=== PATIENT | male | born 1955 | race Caucasian/White ===

== ENCOUNTER 2017-09-11 19:45 | Emergency (ER) | payer MEDICAID ==
--- NOTE | 2017-09-11 19:55 | ED Physician Chart ---
ED Chief Complaint/HPI - Patient Information Date Seen:: 09/11/17 Time Seen:: 19:45 Chief Complaint:: left leg pain History of Present Illness:: Patient states he fell one and a half months ago and has pain of his left femur and is unable to walk. Historian:: Patient, EMS Review:: Nurse's Note Reviewed ED Review of Systems - Review of Systems General/Constitutional: No fever, No chills Skin: No skin lesions Head: No headache Eyes: No loss of vision ENT: No earache Neck: No neck pain, No swelling Cardio Vascular: No chest pain Pulmonary: No SOB GI: No nausea, No vomiting, No diarrhea G/U: No dysuria, No hematuria Musculoskeletal: Bone or joint pain Endocrine: No polyuria, No polydipsia Psychiatric: No prior psych history Hematopoietic: No bruising Allergic/Immuno: No urticaria Neurological: No focal symptoms ED Past Medical History - Past Medical History Past Medical History: No significant medical hx Family History: None Social History: Non Smoker, Alcohol Surgical History: None Family Medical History - Family Member Mother History Unknown: Yes ED Physical Exam - Physical Examination Other Gen/Cons comments:: Disheveled; chronically ill-appearing Head: Atraumatic Eyes: Lids, conjuctiva normal Other Skin comments:: Mild erythema lower legs Other ENMT comments:: Edentulous Neck: No nuchal rigidity Respiratory: Clear to Auscultation Other Cardio Vascular comments:: Heart sounds and audible; pulse regular GI: No tenderness/rebounding/guarding Other Extremities comments:: Mild erythema both lower legs Neuro/Psych: No focal deficits ED Labs/Radiology/EKG Results - Radiology Results Results: X-ray of pelvis showed severe degenerative changes of the left femoral head; jaime in the left femur noted; no acute fracture noted ED Septic Shock - . Is Septic Shock (SBP<90, OR Lactate>4 mmol\L) present?: No ED Reassessment (Disposition) - Reassessment Reassessment Condition:: Unchanged - Diagnosis Diagnosis:: Douglas pain left hip and left femur secondary to arthritis and previous surgery - Aftercare/Follow up Instructions Aftercare/Follow-Up Instructions:: Refer to Discharge Instructions - Patient Disposition Discharge/Transfer:: Home Condition at Disposition:: Stable, Unchanged
[2017-09-11 21:07] LABS: % EOSINOPHILS 9.1 % (0.0-5.0); % LYMPHOCYTES 36.6 % (20.0-50.0); % MONOCYTES 9.3 % (2.0-10.0); BASOPHILE ABSOLUTE 0.1 Th/cumm (0-0.2); EOSINOPHILE ABSOLUTE 0.4 Th/cmm (0.1-0.4); HEMOGLOBIN 12.8 gm/dL (12-16); LYMPHOCYTE ABSOLUTE 1.5 Th/cmm (1.5-3.0); MEAN CELL VOLUME 92.3 fl (80-99); MEAN CORPUSCULAR HEMOGLOBIN 31.9 pg (26.0-30.0); MEAN CORPUSCULAR HGB CONC 34.6 pg (28.0-36.0); MEAN PLATELET VOLUME 6.2 fl; MONOCYTE ABSOLUTE 0.4 Th/cmm (0.3-1.0); NEUTROPHILE ABSOLUTE 1.7 Th/cmm (1.8-8.0); PLATELET COUNT 266 Th/cmm (150-400); RED BLOOD COUNT 4.01 Mil/cmm (4.30-5.70); RED CELL DISTRIBUTION WIDTH 16.9 % (11.5-20.0); WHITE BLOOD COUNT 4.1 Th/cmm (4.8-10.8)
[2017-09-11 21:22] LABS: ANION GAP 15.1 (7.0-16.0); BUN - UREA NITROGEN 9 mg/dL (7-25); CALCIUM SERUM 8.8 mg/dL (8.6-10.3); CARBON DIOXIDE 24.4 mEq/L (21.0-31.0); CHLORIDE 106 mEq/L (98-107); CREATININE - SERUM 0.5 mg/dL (0.7-1.3); GFR AFRICAN-AMERICAN > 60.0 ml/min (>90); GFR NON AFRICAN-AMERICAN > 60.0 ml/min; GLUCOSE 102 mg/dL (70-105); POTASSIUM SERUM 3.5 mEq/L (3.5-5.1); SODIUM SERUM 142 mEq/L (136-145)
--- NOTE | 2017-09-12 08:54 | Diagnostic Imaging Report ---
Exam: Left femur HISTORY:, Please of left femur were reviewed. The study demonstrates rodding of the left femur Degenerative changes with erosion and the superior subluxation of the femoral head superiorly is noted. This most likely represent degenerative or old findings. There is no evidence of acute fracture or dislocation. Degenerative osteopenia is noted. 3 metallic screws are transfixing distal left femur. Incidentally noted lucency extending from the proximal left tibia to the mid tibia, clinical correlation and x-rays of left tibia recommended. IMPRESSION: Diffuse osteopenia degenerative changes of the left femur with erosion of left femoral head and the most likely old dislocation of the left hip joint superiorly. Ill-defined lucency through the proximal portion left tibia medially, question of nondisplaced fracture cannot be excluded follow-up examination of the left tibia recommended.
--- NOTE | 2017-09-12 08:56 | Diagnostic Imaging Report ---
Exam: Pelvis x-ray HISTORY: Trauma. Findings: Single frontal portable summation of the pelvis at 2048 hours reviewed, no prior studies available for comparison. The study demonstrates degenerative osteopenia throughout. There is evidence for right total hip prosthesis in satisfactory position and orientation. The head of right femoral prosthesis is within the acetabular portion of prosthesis The left hip joint demonstrates a superior dislocation of the left femur with erosion and disintegration of the left femoral head. Rodding of the left femur appreciated. 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
== END 2017-09-12 06:48 | disposition home or self-care (01) ==
LOC: ER 19:45
DX: M19.272 Secondary osteoarthritis, left ankle and foot (principal); M25.552 Pain in left hip; M79.662 Pain in left lower leg
CPT/HCPCS: 36415-UA; 72170-TC; 80048-TC; 80320-TC; 85025-TC

== ENCOUNTER 2017-09-16 21:34 | Emergency (ER) | payer MEDICAID ==
--- NOTE | 2017-09-17 07:05 | ED Physician Chart ---
ED Chief Complaint/HPI - Patient Information Date Seen:: 09/17/17 Time Seen:: 00:30 Chief Complaint:: alcohol intoxication History of Present Illness:: 61 yo male was brought by BLS ambulance to ER due to alcohol intoxication. The patient was awake, alert. He denied pain. His respiration was even and non- labored. Patient yelled at times in the ER. There was no other medical complaints. Allergies:: Allergies Allergy/AdvReac Type Severity Reaction Status Date / Time No Known Allergies Allergy Verified 09/17/17 05:57 Vitals:: Vital Signs - 8 hr 09/17/17 09/17/17 00:00 04:00 Temp 98.2 F 98.1 F HR 95 92 RR 18 18 BP 145/90 139/86 O2 Sat % 98 97 ED Review of Systems - Review of Systems General/Constitutional: No fever, No chills Skin: No skin lesions Head: Headache Eyes: No loss of vision ENT: No earache Neck: No neck pain Cardio Vascular: No chest pain Pulmonary: No SOB GI: No nausea Musculoskeletal: Bone or joint pain ED Past Medical History - Past Medical History Past Medical History: Other (Left hip DJD) Social History: Non Smoker, Alcohol, No Drug Use Surgical History: other (Left femur ORIF) Family Medical History - Family Member Mother History Unknown: Yes ED Physical Exam - Physical Examination General/Constitutional: Awake, Alert Head: Atraumatic Eyes: PERRL Skin: No skin lesions Neck: No nuchal rigidity Respiratory: Clear to Auscultation Cardio Vascular: RRR, No murmur, gallop, rubs, NL S1 S2 GI: No tenderness/rebounding/guarding Extremities: normal strength in all extremities Neuro/Psych: No focal deficits ED Assessment - Assessment General Assessment: Alcohol intoxication Assessment/Comments:: Observation Patient slept for 5-6 hours in the ER and had breakfast D/c home F/u PCP for quit drinking alcohol ED Septic Shock - . Is Septic Shock (SBP<90, OR Lactate>4 mmol\L) present?: No - <6hrs of presentation: Vital Signs: Vital Signs - 8 hr 09/17/17 09/17/17 00:00 04:00 Temp 98.2 F 98.1 F HR 95 92 RR 18 18 BP 145/90 139/86 O2 Sat % 98 97 ED Reassessment (Disposition) - Reassessment Reassessment Condition:: Improved - Patient Disposition Discharge/Transfer:: Home ED Discharge Plan - Patient Disposition Admit/Discharge/Transfer: PT DISCHARGED HOME Condition at Disposition: Improved Instructions: Alcohol Intoxication, [id number]
== END 2017-09-17 08:30 | disposition home or self-care (01) ==
LOC: ER 21:34
DX: F10.129 Alcohol abuse with intoxication, unspecified (principal)
CPT/HCPCS: Z7502

== ENCOUNTER 2017-09-22 14:19 | Emergency (ER) | payer MEDICAID ==
--- NOTE | 2017-09-22 20:56 | ED Physician Chart ---
ED Chief Complaint/HPI - Patient Information Allergies:: Allergies Allergy/AdvReac Type Severity Reaction Status Date / Time No Known Allergies Allergy Verified 09/17/17 05:57 Vitals:: Vital Signs - 8 hr 09/22/17 14:55 Temp 97.6 F HR 93 RR 18 BP 157/89 O2 Sat % 96 Family Medical History - Family Member Mother History Unknown: Yes ED Septic Shock - . Is Septic Shock (SBP<90, OR Lactate>4 mmol\L) present?: No - <6hrs of presentation: Vital Signs: Vital Signs - 8 hr 09/22/17 14:55 Temp 97.6 F HR 93 RR 18 BP 157/89 O2 Sat % 96 ED Reassessment (Disposition) - Reassessment Reassessment:: pt in stable condition while in ER. says he feels better and wants to go. pt to be discharged. discharge diagnosis: alcohol use, intoxication, improved. Reassessment Condition:: Improved - Diagnosis Diagnosis:: alcohol use and intoxication, improved - Aftercare/Follow up Instructions Aftercare/Follow-Up Instructions:: Refer to Discharge Instructions - Patient Disposition Discharge/Transfer:: Home Time:: 20:55 Condition at Disposition:: Stable, Improved ED Discharge Plan - Patient Disposition Instructions: Chemical Dependency, Alcohol Intoxication, [id number]
== END 2017-09-22 22:10 | disposition home or self-care (01) ==
LOC: ER 14:19
DX: F10.129 Alcohol abuse with intoxication, unspecified (principal)
CPT/HCPCS: Z7502

== ENCOUNTER 2017-09-23 14:01 | Emergency (ER) | payer MEDICAID ==
[2017-09-23] MEDS ORDERED: Sodium Chloride 0.9% 1,000 ML IV ONE (14:51)
--- NOTE | 2017-09-23 14:57 | ED Physician Chart ---
ED Chief Complaint/HPI - Patient Information Date Seen:: 09/23/17 Time Seen:: 14:10 Chief Complaint:: ALOC History of Present Illness:: onset x 3 hours of AMS/ALOC due to ETOH Intoxication which resolved upon ER arrival; pt denies head/neck trauma, H/As, LOC, visual or gait changes, S/T, nevk pain, C/P, SOB, Abd. Pain, Cough, A/N/V/D/C, fever, chills, or urinary s/s Allergies:: Allergies Allergy/AdvReac Type Severity Reaction Status Date / Time No Known Allergies Allergy Verified 09/17/17 05:57 Vitals:: Vital Signs - 8 hr 09/23/17 14:08 Temp 96 F HR 101 RR 16 BP 137/91 O2 Sat % 99 Historian:: Patient, EMS Review:: Nurse's Note Reviewed ED Review of Systems - Review of Systems General/Constitutional: No fever, No chills, No weight loss, No weakness, No diaphoresis, No edema, No loss of appetite Skin: No skin lesions, No rash, No bruising Head: No headache, No light-headedness Eyes: No loss of vision, No pain, No diplopia ENT: No earache, No nasal drainage, No sore throat, No tinnitus Neck: No neck pain, No swelling, No thyromegaly, No stiffness, No mass noted Cardio Vascular: No chest pain, No palpitations, No PND, No orthopnea, No edema Pulmonary: No SOB, No cough, No sputum, No wheezing GI: No nausea, No vomiting, No diarrhea, No pain, No melena, No hematochezia, No constipation, No hematemesis G/U: No dysuria, No frequency, No hematuria, No nacturia Musculoskeletal: No bone or joint pain, No back pain, No muscle pain Endocrine: No polyuria, No polydipsia Psychiatric: No prior psych history, No depression, No anxiety, No suicidal ideation, No homicidal ideation, No auditory hallucination, No visual hallucination Hematopoietic: No bruising, No lymphadenopathy Allergic/Immuno: No urticaria, No angioedema Neurological: No syncope, No focal symptoms, No weakness, No paresthesia, No headache, No seizure, No dizziness, No confusion, No vertigo ED Past Medical History - Past Medical History Obtainable: Yes Past Medical History: Other (substance/ETOH abuse) Family History: HTN Social History: Smoker, Alcohol, Illicit Drug Use, Single, Homeless Surgical History: None Psychiatricy History: None Medication: Reviewed Family Medical History - Family Member Mother History Unknown: Yes ED Physical Exam - Physical Examination General/Constitutional: Awake, Well-developed, well-nourished, Alert, No distress, GCS 15, Non-toxic appearing, Ambulatory Head: Atraumatic Eyes: Lids, conjuctiva normal, PERRL, EOMI Skin: Nl inspection, No rash, No skin lesions, No ecchymosis, Well hydrated, No lymphadenopathy ENMT: External ears, nose nl, TM canals nl, Nasal exam nl, Lips, teeth, gums nl , Oropharynx nl, Tonsils nl Neck: Nontender, Full ROM w/o pain, No JVD, No nuchal rigidity, No bruit, No mass, No stridor Other Neck comments:: Supple; no meningeal signs; no cervical tenderness; no bruits Respiratory: Nl effort/Exclusion, Clear to Auscultation, No Wheeze/Rhonchi/Rales Cardio Vascular: RRR, No murmur, gallop, rubs, NL S1 S2, Carotid/Femoral/Distal pulses equal bilaterally GI: No tenderness/rebounding/guarding, No organomegaly, No hernia, Normal BS's, Nondistended, No mass/bruits, No McBurney tenderness Other GI comments:: no pulsatile masses : No CVA tenderness Extremities: No tenderness or effusion, Full ROM, normal strength in all extremities, No edema, Normal digits & nails Neuro/Psych: Alert/oriented, DTR's symmetric, Normal sensory exam, Normal motor strength, Judgement/insight normal, Mood normal, Normal gait, No focal deficits Misc: Normal back, No paraspinal tenderness ED Septic Shock - . Is Septic Shock (SBP<90, OR Lactate>4 mmol\L) present?: No - <6hrs of presentation: Vital Signs: Vital Signs - 8 hr 09/23/17 14:08 Temp 96 F HR 101 RR 16 BP 137/91 O2 Sat % 99
[2017-09-23 15:29] LABS: RED BLOOD COUNT 4.52 Mil/cmm (4.30-5.70); WHITE BLOOD COUNT 5.6 Th/cmm (4.8-10.8)
[2017-09-23 15:30] LABS: % EOSINOPHILS 3.2 % (0.0-5.0); % LYMPHOCYTES 22.4 % (20.0-50.0); % MONOCYTES 13.4 % (2.0-10.0); % NEUTROPHILS 60.9 % (40.0-80.0); HEMATOCRIT 42.4 % (41.0-60); MEAN CELL VOLUME 93.7 fl (80-99); MEAN CORPUSCULAR HGB CONC 33.1 pg (28.0-36.0); MEAN PLATELET VOLUME 6.3 fl; PLATELET COUNT 248 Th/cmm (150-400)
[2017-09-23 15:31] LABS: % BASOPHILS 0.1 % (0.0-2.0); EOSINOPHILE ABSOLUTE 0.2 Th/cmm (0.1-0.4); LYMPHOCYTE ABSOLUTE 1.3 Th/cmm (1.5-3.0); MONOCYTE ABSOLUTE 0.8 Th/cmm (0.3-1.0); NEUTROPHILE ABSOLUTE 3.3 Th/cmm (1.8-8.0)
[2017-09-23 15:40] LABS: INR 1.01 (0.5-1.4); PROTHROMBIN TIME (TEST) 10.5 SECONDS (9.5-11.5)
[2017-09-23] MEDS ORDERED: Multivitamin Inj 10 ML, Thiamine HCL 100 MG, Magnesium Sulfate 2 GM, Folic Acid 1 MG in... IV ONE (16:00)
[2017-09-23 16:15] LABS: AMYLASE SERUM 34 U/L (29-103); LIPASE 48 U/L (11-82)
[2017-09-23 16:16] LABS: ANION GAP 20.5 (7.0-16.0); BUN - UREA NITROGEN 8 mg/dL (7-25); CARBON DIOXIDE 20.7 mEq/L (21.0-31.0); CHLORIDE 107 mEq/L (98-107); GLUCOSE 96 mg/dL (70-105); POTASSIUM SERUM 3.2 mEq/L (3.5-5.1); SODIUM SERUM 145 mEq/L (136-145)
[2017-09-23 16:17] LABS: ALB/GLOB RATIO 1.3 (1.0-1.8); ALBUMIN 4.4 gm/dL (4.2-5.5); BILIRUBIN,TOTAL 0.3 mg/dL (0.3-1.0); CALCIUM SERUM 9.1 mg/dL (8.6-10.3); CREATININE - SERUM 0.5 mg/dL (0.7-1.3); GFR AFRICAN-AMERICAN > 60.0 ml/min (>90); GFR NON AFRICAN-AMERICAN > 60.0 ml/min; TOTAL PROTEIN,SERUM 7.9 gm/dL (6.0-8.3)
[2017-09-23 16:18] LABS: ALKALINE PHOSPHATASE 104 U/L (34-104); CHOLESTEROL 269 mg/dL (<200); CREATININE KINASE 262 U/L (30-223); HDL -HIGH DENSITY LIPOPROTEIN 130 mg/dL (23-92); SGOT 37 U/L (13-39); SGPT/ALT 18 U/L (7-52); TRIGLYCERIDES 102 mg/dL (<150)
[2017-09-23] MEDS ORDERED: Hydrocodone/APAP 5mg/325mg Tab PO ONE (18:45)
[2017-09-23] MEDS ORDERED: Hydrocodone/APAP 5mg/325mg Tab ONE (18:47)
[2017-09-23 19:53] LABS: AMPHETAMINE URINE NEGATIVE (NEGATIVE); BARBITURATES URINE NEGATIVE (NEGATIVE); BENZODIAZEPINES QUAL URINE POSITIVE (NEGATIVE); CANNABINOID THC NEGATIVE (NEGATIVE); COCAINE METABOLITE QUAL URINE NEGATIVE (NEGATIVE); METHADONE URINE NEGATIVE (NEGATIVE); METHAMPHETAMINES QUAL URINE NEGATIVE (NEGATIVE); OPIATES (MORPHINE) QUAL. URINE NEGATIVE (NEGATIVE); PHENCYCLIDINE (PCP) URINE NEGATIVE (NEGATIVE); TRICYCLICS (TCA) QUAL. URINE NEGATIVE (NEGATIVE)
--- NOTE | 2017-09-24 09:01 | Diagnostic Imaging Report ---
CHEST X-RAY: AP view INDICATION: pain COMPARISON: 09/21/2017 FINDINGS: There is elevation of the right hemidiaphragm. Chronic lung changes are seen with probable emphysema. No focal consolidation or effusion. Heart size is normal. Atherosclerosis is noted. Degenerative changes of spine are noted. Old left clavicular fracture is noted. IMPRESSION: Chronic lung changes with probable emphysematous changes. No focal consolidation identified. Atherosclerotic vascular disease.
== END 2017-09-23 21:49 | disposition left against medical advice (07) ==
LOC: ER 14:01
DX: F10.129 Alcohol abuse with intoxication, unspecified (principal); F17.200 Nicotine dependence, unspecified, uncomplicated; Z59.0 Homelessness
CPT/HCPCS: 99285; 96360; 96361; 94760; 71045; 84484; 83880; 36415; 80307; 85025; 85610; 80320; 82150; 82550; 82553; 83690; 80053; 80061; J3411; J3475; J7030; X6598

== ENCOUNTER 2017-09-27 17:18 | Inpatient (IN) | payer MEDICAID ==
--- NOTE | 2017-09-27 18:04 | ED Physician Chart ---
ED Chief Complaint/HPI - Patient Information Date Seen:: 09/27/17 Time Seen:: 18:02 Chief Complaint:: CONFUSED AND INTOXICATED, GRAVELY DISABLED History of Present Illness:: PT REFUSES TO TALK WITH ME. HE WAS BIB THE POLICE FOR BEING GRAVELY DISABLED AND ALTERED MENTAL STATUS. THE UX CONSULTANT KNOWS THE PT WELL AND SAYS HE HAS HAD A MARKEDLY decrease in mental status over the past number of weeks. Allergies:: Allergies Allergy/AdvReac Type Severity Reaction Status Date / Time No Known Allergies Allergy Verified 09/17/17 05:57 Vitals:: Vital Signs - 8 hr 09/27/17 17:38 Temp 98.3 F HR 104 RR 22 BP 131/91 O2 Sat % 98 ED Review of Systems - Review of Systems General/Constitutional: Other Skin: Other (patient refuses to answer questions from the review of systems.) Family Medical History - Family Member Mother History Unknown: Yes ED Labs/Radiology/EKG Results - Lab Results Results: PATIENT refused to have blood drawn. ED Assessment - Assessment General Assessment: CASE SUMMARY: THIS 61-year-old male was brought to the emergency department by police after having been found unconscious and having fallen out of his wheelchair. He is well known to the police department and a heavy drinker who they say is becoming progressively more impaired. He was placed on a 5150 hold. He was initially unresponsive the one he did wake up he refused any lab draws and refused evaluation by me. Patient had been in continental feces and covered from the waist down in both lower extremities. He was cleaned up by nursing personnel. This was toward the end of my shift and the patient was passed on to for observation due to alcohol intoxication and disposition after evaluation by psychiatric services. ED Septic Shock - . Is Septic Shock (SBP<90, OR Lactate>4 mmol\L) present?: No - <6hrs of presentation: Vital Signs: Vital Signs - 8 hr 09/27/17 17:38 Temp 98.3 F HR 104 RR 22 BP 131/91 O2 Sat % 98 ED Reassessment (Disposition) - Reassessment Reassessment Condition:: Improved ED Discharge Plan - Patient Disposition Admit/Discharge/Transfer: Acute Care w/in this hosp
[2017-09-27 19:29] LABS: BASOPHILE ABSOLUTE 0.1 Th/cumm (0-0.2); EOSINOPHILE ABSOLUTE 0.1 Th/cmm (0.1-0.4); LYMPHOCYTE ABSOLUTE 1.2 Th/cmm (1.5-3.0); MONOCYTE ABSOLUTE 0.4 Th/cmm (0.3-1.0)
[2017-09-27 19:33] LABS: % BASOPHILS 2.4 % (0.0-2.0); % EOSINOPHILS 3.8 % (0.0-5.0); % LYMPHOCYTES 36.7 % (20.0-50.0); % MONOCYTES 12.1 % (2.0-10.0); MEAN CELL VOLUME 91.4 fl (80-99); MEAN CORPUSCULAR HEMOGLOBIN 32.1 pg (26.0-30.0); MEAN CORPUSCULAR HGB CONC 35.1 pg (28.0-36.0); MEAN PLATELET VOLUME 6.5 fl; NEUTROPHILE ABSOLUTE 1.5 Th/cmm (1.8-8.0); RED BLOOD COUNT 3.75 Mil/cmm (4.30-5.70); RED CELL DISTRIBUTION WIDTH 16.2 % (11.5-20.0)
[2017-09-27 19:39] LABS: HEMATOCRIT 34.3 % (41.0-60); PLATELET COUNT 139 Th/cmm (150-400); WHITE BLOOD COUNT 3.3 Th/cmm (4.8-10.8)
[2017-09-27 19:49] LABS: ALB/GLOB RATIO 1.4 (1.0-1.8); ALBUMIN 3.7 gm/dL (4.2-5.5); ALKALINE PHOSPHATASE 83 U/L (34-104); ANION GAP 16.4 (7.0-16.0); BILIRUBIN,TOTAL 0.9 mg/dL (0.3-1.0); BUN - UREA NITROGEN 8 mg/dL (7-25); CALCIUM SERUM 8.6 mg/dL (8.6-10.3); CARBON DIOXIDE 24.6 mEq/L (21.0-31.0); CHLORIDE 101 mEq/L (98-107); CREATININE - SERUM 0.5 mg/dL (0.7-1.3); GFR AFRICAN-AMERICAN > 60.0 ml/min (>90); GFR NON AFRICAN-AMERICAN > 60.0 ml/min; GLUCOSE 88 mg/dL (70-105); SGOT 53 U/L (13-39); SGPT/ALT 25 U/L (7-52); SODIUM SERUM 139 mEq/L (136-145); TOTAL PROTEIN,SERUM 6.4 gm/dL (6.0-8.3)
[2017-09-27 19:50] LABS: AMYLASE SERUM 31 U/L (29-103); LIPASE 35 U/L (11-82)
[2017-09-27] MEDS ORDERED: Clindamycin 600mg/50mL 600 MG/50 ML BAG IV ONE (20:18)
[2017-09-27] MEDS ORDERED: Potassium Phosphate 20 MMOLE in Sodium Chloride 0.9% 250 ML IV ONE (20:19)
[2017-09-27] MEDS ORDERED: Thiamine 100 mg/mL 2mL Vial IM STA (20:20)
[2017-09-27] MEDS ORDERED: Levofloxacin 500mg/100mL 500 MG/100 ML BAG IV ONE ×2 (20:23→21:53)
[2017-09-27] MEDS ORDERED: Sodium Chloride 0.9% 1,000 ML IV ONE (20:25)
[2017-09-27] MEDS ORDERED: Metoclopramide 5 mg/mL 2mL Vial IVP STA (20:29)
[2017-09-27 20:54] LABS: INR 1.05 (0.5-1.4); PROTHROMBIN TIME (TEST) 10.9 SECONDS (9.5-11.5)
[2017-09-27] MEDS ORDERED: Potassium Chloride 20 mEq ER Tab PO ONE ×2 (21:43→21:56)
[2017-09-27] MEDS ORDERED: Thiamine 100 mg/mL 2mL Vial ONE (21:52)
[2017-09-27] MEDS ORDERED: Metoclopramide 5 mg/mL 2mL Vial ONE (21:54)
--- NOTE | 2017-09-27 21:56 | ER Physician Documentation ---
DATE OF SERVICE: 09/27/2017 I came on the shift of the emergency room physician at 7 p.m. at which point in time Dr. Mark Barnes handed me a patient who was severely alcoholic, intoxicated status. The patient was confused, intoxicated and gravely disabled and the patient was brought here. He was covered with lots of fecal material. The patient was cleaned and he was BIB the police for being gravely disabled and altered mental status. humane officer knows the patient well and states that he has had markedly decreased mental status over the past several weeks. ALLERGIES: No known allergies noted. Admission vital signs were 98.3, heart rate 104, respiratory rate is 22, opening blood pressure was 131/91 and oxygen saturation was 98. Review of systems could not be obtained, but by the time I came and started, the patient was a little more awake. He said he is in the hospital across from the street and he does drink alcohol, a couple of beers a day. He smokes about 20 cigarettes a day. He did not give any other history to Dr. Flores, so that is why I am continuing to get some more history from the patient. The nurses know the patient. He comes here quite frequently and I was told that Department of [facility], Pema Daniel, would like to know about the patient. In the working hours, her telephone number is [phone] and they would like to call her in case if the patient is being discharged or any other thing is there, so that will be taken care by the nurse. The patient denied any myocardial infarction or rheumatic fever. HISTORY OF PRESENT ILLNESS: The patient does not have any fevers, chills or rigors. The patient seems to be dry. The patient is not allergic to anything. The patient has no other significant disease. The patient is mentally unstable and patient has some psychotic diseases and patient, I believe, is homeless too. Whether the patient has any other medical condition is not known, but right now opening blood pressure was slightly high. REVIEW OF SYSTEMS: EYES: No double vision, no blurring. The patient does open the eyes on command. CHEST: The patient has no cough. No shortness of breath. No dyspnea is noted. No rales or rhonchi audible. ABDOMEN: Soft, benign and negative. CENTRAL NERVOUS SYSTEM: The patient is awake right now. The patient has been moving both upper and lower extremities. The lower extremities are painful, tender, 1+ swollen and there is evidence of cellulitis in both lower extremities with edema over the legs is noted. CLINICAL IMPRESSION: The patient has psychosis. The patient has acute alcoholic intoxication. The patient was covered with fecal material. The patient is an alcoholic. Whether the patient has Wernicke's encephalopathy or not, but the patient will be given thiamine and other antibiotics for his cellulitis and all other treatment to make him better. His initial lactic acid level was around 2.26 or something like that. Potassium level was 3, so we will give the potassium. We will check the magnesium level also and a chest x-ray to see and the patient will need admission to the hospital. ADMITTING DIAGNOSES: 1. Cellulitis in both lower extremities. 2. Alcoholic intoxication. 3. The patient has psychosis ____. 4. The patient has a sepsis status. We will check his urine blood cultures, etc., and will do the other needful things as needed. The patient's condition was reported to the charge nurse and will try and admit the patient and do the needful. This is the first report and once I get the full report of the labs and things, the admitting doctor will be called and the patient will be admitted in the hospital. Thank you very much. JOB# [id number]
--- NOTE | 2017-09-27 22:50 | ER Physician Documentation ---
DATE OF SERVICE: 09/27/2017 The patient came here on 09/27/2017. We got some lab results back 1.9. The patient is awake and alert. The patient's white count was found to be 3.3. The patient's hemoglobin is 12, hematocrit is 34.3, platelet count is 139 and neutrophil count is 45%. The patient's potassium was 3, sodium 139, anion gap is 16.4, creatinine 0.5, BUN is 8. The patient's albumin is 3.7. SGOT: AST is 53, ALT is 25, alkaline phosphatase is 83. Lactic acid is 2.61. Amylase is 31, lipase is 35. He is more alert. He says he knows where he is and the patient has evidence of cellulitis in both lower extremities as I mentioned. The patient was given clindamycin. The patient was given Levaquin IV and potassium chloride has been given and Dr. Souza who is induction brazer was called. He was given the instructions about this patient and he will admit the patient. Department of Health wanted to talk to and they will communicate ____ [facility], Pema Daniel, between 8 to 5 to call her and she wants to know more and more about this patient and the patient is doing fine and will admit the patient. Admission orders have been given by the doctor. JOB# [id number]
[2017-09-28 00:35] VITALS: BP 129/77
[2017-09-28] MEDS ORDERED: Pneumococcal Vaccine 0.5 mL Vial IM ONE (00:55)
[2017-09-28] MEDS ORDERED: Clindamycin 150 mg/mL 4mL Vial ONE (01:23)
[2017-09-28] MEDS ORDERED: Potassium Chloride 20 mEq ER Tab PO ONE ×2 (09:15→10:24)
[2017-09-28] MEDS: Multivitamin w/ Minerals Tab PO SCH (10:46)
[2017-09-28] MEDS: Hydrocodone/APAP 5mg/325mg Tab PO PRN ×4 (10:54→22:28)
--- NOTE | 2017-09-28 16:34 | History & Physical ---
ADMIT DATE: 09/27/2017 CHIEF COMPLAINT: The patient came in because of painful bilateral lower extremities. HISTORY OF PRESENT ILLNESS: This is a 61-year-old male with past medical history of psychosis who came in because of painful bilateral lower extremities. A few hours prior to admission, the patient was brought in by police for public intoxication. He was confused, intoxicated, disheveled, as well as unkempt with fecal material. He was subsequently cleaned up. Exam revealed bilateral lower extremity tenderness associated with erythema and warmth. He was then admitted for possible alcohol withdrawal and bilateral lower extremity cellulitis. He had no fever, no chills, nausea and vomiting and abdominal pain. PAST MEDICAL HISTORY: 1. Psychosis. 2. Chronic alcohol abuse. PAST SURGICAL HISTORY: Status post bilateral total knee replacement. CURRENT MEDICATIONS: He is currently on Librium, levofloxacin, Ativan, multivitamins, pantoprazole, and vancomycin. ALLERGIES: No known drug allergies. SOCIAL HISTORY: He still smokes approximately 20 cigarettes a day. He has a history of alcohol abuse. FAMILY HISTORY: Unknown at the present time. REVIEW OF SYSTEMS: The patient unable to provide any accurate response because he is a little bit stuporous today. PHYSICAL EXAMINATION: GENERAL: The patient is stuporous, but arousable, not in any severe distress. VITAL SIGNS: His blood pressure 108/65, pulse 100, and temperature 98.8. SKIN: Good turgor, warm, no rash, no jaundice appreciated. HEENT: Head normocephalic, atraumatic. Eyes: Extraocular muscles intact. Pupils equal, round, reactive to light and accommodates, anicteric sclerae, pale conjunctivae. Nose, midline nasal septum. Mouth: Dry mucosa with poor dentition. NECK: Supple, no adenopathy, no thyromegaly, no bruits. Trachea palpated in the midline. CHEST AND CARDIOVASCULAR: S1, S2. No rub, murmur, no gallop appreciated. Point of maximal impulse fifth intercostal space, left midclavicular line. No abdominal or femoral bruits appreciated. LUNGS: Equal expansion. No use of accessory muscles. No supraclavicular retractions. Decreased breath sounds, few rhonchi, but no rales nor wheezes appreciated. ABDOMEN: Mildly globular, soft. Positive for bowel sounds. No bruits either diastolic or systolic. RECTAL: Lax sphincter tone. GENITOURINARY: Normal appearing male genitalia. MUSCULOSKELETAL: No effusions present in his joints, but unable to assess his range of motion. EXTREMITIES: He has bilateral knee chronic deformities, minimal left lower extremity edema with erythema and both lower extremities are tender to touch and warm. NEUROLOGIC: The patient is stuporous at the present time, unable to follow my neuro commands, so I was not able to pursue further my neuro exam. LABORATORY DATA: White count is 3.3, hemoglobin 12, hematocrit 34.3, platelets 139, polys 4-5%. Sodium 139, potassium 3, chloride 101, bicarbonate 24, BUN 8, creatinine 0.5, glucose 88, calcium 8.6, magnesium 1.9, and albumin 3.7. IMPRESSION: 1. Bilateral lower extremity cellulitis, left greater than right. 2. Chronic deformity involving both knees. 3. Chronic alcohol abuse. 4. Alcohol withdrawal symptoms. 5. Psychosis. 6. Hypokalemia. PLAN: 1. Continue with Levaquin. 2. Continue with thiamine. 3. Librium as needed. 4. Vancomycin. 5. Replace potassium. 6. Follow up electrolytes and CBC. 7. Follow up a panculture. JOB# [id number]
[2017-09-28] MEDS: Nicotine 21 mg/24 hr Tdm TD SCH (17:43)
[2017-09-28] MEDS ORDERED: Levofloxacin 500mg/100mL 500 MG/100 ML BAG IV SCH (21:00)
[2017-09-29] MEDS: Hydrocodone/APAP 5mg/325mg Tab PO PRN ×3 (03:54→16:36)
[2017-09-29 06:27] LABS: % BASOPHILS 1.4 % (0.0-2.0); % EOSINOPHILS 7.9 % (0.0-5.0); % LYMPHOCYTES 33.8 % (20.0-50.0); % MONOCYTES 13.9 % (2.0-10.0); EOSINOPHILE ABSOLUTE 0.2 Th/cmm (0.1-0.4); HEMATOCRIT 35.4 % (41.0-60); HEMOGLOBIN 11.9 gm/dL (12-16); MEAN CORPUSCULAR HEMOGLOBIN 31.4 pg (26.0-30.0); MEAN CORPUSCULAR HGB CONC 33.7 pg (28.0-36.0); MEAN PLATELET VOLUME 7.2 fl; MONOCYTE ABSOLUTE 0.4 Th/cmm (0.3-1.0); NEUTROPHILE ABSOLUTE 1.3 Th/cmm (1.8-8.0); RED CELL DISTRIBUTION WIDTH 15.5 % (11.5-20.0)
[2017-09-29 06:44] LABS: ANION GAP 9.6 (7.0-16.0); BUN - UREA NITROGEN 6 mg/dL (7-25); CALCIUM SERUM 8.7 mg/dL (8.6-10.3); CARBON DIOXIDE 28.5 mEq/L (21.0-31.0); CHLORIDE 99 mEq/L (98-107); CREATININE - SERUM 0.5 mg/dL (0.7-1.3); GFR AFRICAN-AMERICAN > 60.0 ml/min (>90); GFR NON AFRICAN-AMERICAN > 60.0 ml/min; GLUCOSE 93 mg/dL (70-105); MAGNESIUM 1.6 mg/dL (1.9-2.7); PHOSPHOROUS 3.9 mg/dL (2.5-5.0); POTASSIUM SERUM 3.1 mEq/L (3.5-5.1); SODIUM SERUM 134 mEq/L (136-145)
[2017-09-29 08:31] LABS: PLATELET COUNT 89 Th/cmm (150-400); WHITE BLOOD COUNT 2.9 Th/cmm (4.8-10.8)
[2017-09-29] MEDS: Pantoprazole 40 mg EC Tab PO SCH (09:23)
[2017-09-29] MEDS: Multivitamin w/ Minerals Tab PO SCH (09:23)
[2017-09-29] MEDS ORDERED: Mag Sulfate 2gm/50mL Premix 2 GM/50 ML BAG IV ONE (09:30)
[2017-09-29] MEDS ORDERED: Potassium Chloride 20 mEq ER Tab PO ONE (09:30)
--- NOTE | 2017-09-29 09:37 | Consultation ---
DATE OF CONSULTATION: 09/29/2017 REQUESTING PHYSICIAN: Dr. Souza. REASON FOR CONSULTATION: History of alcohol dependence. HISTORY OF PRESENT ILLNESS: This patient is a 61-year-old male, currently homeless, admitted here for painful bilateral lower extremity. The patient has been placed on 5150 and admitted over here for stabilization. I have tried to interview the patient, but patient is very groggy and has been sedated with the medication that he has been receiving. The patient is reported to have been very much intoxicated. The patient has been currently on Librium and levofloxacin and being treated for hyperkalemia and we tried to interview the staff mentioning that the patient has been too sleepy since the time he came in. The patient is not providing much of information at this time. The patient is going to be interviewed again. The patient is going to be continued with the Librium and followed up with the supportive therapy. Thank you, Dr. Souza for allowing me to participate in the care of the patient. JOB# [id number]
[2017-09-29 10:03] LABS: INR 1.09 (0.5-1.4); PROTHROMBIN TIME (TEST) 11.4 SECONDS (9.5-11.5)
[2017-09-29 12:21] LABS: ALB/GLOB RATIO 1.4 (1.0-1.8); ALBUMIN 3.5 gm/dL (4.2-5.5); ALKALINE PHOSPHATASE 78 U/L (34-104); ANION GAP 10.9 (7.0-16.0); BILIRUBIN,TOTAL 0.7 mg/dL (0.3-1.0); BUN - UREA NITROGEN 5 mg/dL (7-25); CALCIUM SERUM 8.8 mg/dL (8.6-10.3); CARBON DIOXIDE 28.2 mEq/L (21.0-31.0); CHLORIDE 99 mEq/L (98-107); CREATININE - SERUM 0.5 mg/dL (0.7-1.3); GFR AFRICAN-AMERICAN > 60.0 ml/min (>90); GFR NON AFRICAN-AMERICAN > 60.0 ml/min; GLUCOSE 97 mg/dL (70-105); POTASSIUM SERUM 3.1 mEq/L (3.5-5.1); SGOT 34 U/L (13-39); SGPT/ALT 18 U/L (7-52); SODIUM SERUM 135 mEq/L (136-145); TOTAL PROTEIN,SERUM 6.1 gm/dL (6.0-8.3)
[2017-09-29] MEDS: Nicotine 21 mg/24 hr Tdm TD SCH (14:06)
[2017-09-29] MEDS: cefTRIAXone 1 GM in Sodium Chloride 0.9% 50 ML IV SCH (14:06)
[2017-09-30 06:55] LABS: % BASOPHILS 1.7 % (0.0-2.0); % EOSINOPHILS 8.7 % (0.0-5.0); % LYMPHOCYTES 23.1 % (20.0-50.0); % MONOCYTES 13.4 % (2.0-10.0); % NEUTROPHILS 53.1 % (40.0-80.0); BASOPHILE ABSOLUTE 0.1 Th/cumm (0-0.2); EOSINOPHILE ABSOLUTE 0.3 Th/cmm (0.1-0.4); HEMATOCRIT 34.8 % (41.0-60); HEMOGLOBIN 11.8 gm/dL (12-16); LYMPHOCYTE ABSOLUTE 0.8 Th/cmm (1.5-3.0); MEAN CELL VOLUME 93.5 fl (80-99); MEAN CORPUSCULAR HEMOGLOBIN 31.7 pg (26.0-30.0); MEAN CORPUSCULAR HGB CONC 33.9 pg (28.0-36.0); MEAN PLATELET VOLUME 7.7 fl; MONOCYTE ABSOLUTE 0.5 Th/cmm (0.3-1.0); NEUTROPHILE ABSOLUTE 1.7 Th/cmm (1.8-8.0); PLATELET COUNT 88 Th/cmm (150-400); RED BLOOD COUNT 3.73 Mil/cmm (4.30-5.70); RED CELL DISTRIBUTION WIDTH 15.4 % (11.5-20.0)
[2017-09-30 07:04] LABS: WHITE BLOOD COUNT 3.4 Th/cmm (4.8-10.8)
[2017-09-30 08:24] LABS: ALB/GLOB RATIO 1.3 (1.0-1.8); ALBUMIN 3.6 gm/dL (4.2-5.5); ALKALINE PHOSPHATASE 69 U/L (34-104); ANION GAP 10.9 (7.0-16.0); BILIRUBIN,TOTAL 0.6 mg/dL (0.3-1.0); BUN - UREA NITROGEN 5 mg/dL (7-25); CALCIUM SERUM 8.8 mg/dL (8.6-10.3); CARBON DIOXIDE 26.5 mEq/L (21.0-31.0); CHLORIDE 103 mEq/L (98-107); CREATININE - SERUM 0.5 mg/dL (0.7-1.3); GFR AFRICAN-AMERICAN > 60.0 ml/min (>90); GFR NON AFRICAN-AMERICAN > 60.0 ml/min; GLUCOSE 101 mg/dL (70-105); POTASSIUM SERUM 3.4 mEq/L (3.5-5.1); SGOT 30 U/L (13-39); SGPT/ALT 17 U/L (7-52); SODIUM SERUM 137 mEq/L (136-145); TOTAL PROTEIN,SERUM 6.3 gm/dL (6.0-8.3)
[2017-09-30] MEDS ORDERED: Potassium Chloride 20 mEq ER Tab PO ONE (08:50)
[2017-09-30] MEDS ORDERED: Influenza Vaccine 0.5 mL Syr IM ONE (09:00)
[2017-09-30] MEDS: Nicotine 21 mg/24 hr Tdm TD SCH (09:14)
[2017-09-30] MEDS: Pantoprazole 40 mg EC Tab PO SCH (09:15)
[2017-09-30] MEDS: Multivitamin w/ Minerals Tab PO SCH (09:15)
[2017-09-30] MEDS: cefTRIAXone 1 GM in Sodium Chloride 0.9% 50 ML IV SCH (09:16)
[2017-09-30] MEDS: Hydrocodone/APAP 5mg/325mg Tab PO PRN ×3 (10:23→19:56)
[2017-10-01] MEDS: Hydrocodone/APAP 5mg/325mg Tab PO PRN ×3 (00:25→10:57)
[2017-10-01 07:20] LABS: % BASOPHILS 1.4 % (0.0-2.0); % LYMPHOCYTES 34.3 % (20.0-50.0); % MONOCYTES 14.8 % (2.0-10.0); % NEUTROPHILS 39.5 % (40.0-80.0); ANION GAP 9.1 (7.0-16.0); BUN - UREA NITROGEN 6 mg/dL (7-25); CALCIUM SERUM 9.4 mg/dL (8.6-10.3); CARBON DIOXIDE 26.9 mEq/L (21.0-31.0); CHLORIDE 104 mEq/L (98-107); CREATININE - SERUM 0.5 mg/dL (0.7-1.3); EOSINOPHILE ABSOLUTE 0.3 Th/cmm (0.1-0.4); GFR AFRICAN-AMERICAN > 60.0 ml/min (>90); GFR NON AFRICAN-AMERICAN > 60.0 ml/min; GLUCOSE 93 mg/dL (70-105); HEMATOCRIT 38.1 % (41.0-60); LYMPHOCYTE ABSOLUTE 1.1 Th/cmm (1.5-3.0); MAGNESIUM 2.1 mg/dL (1.9-2.7); MEAN CELL VOLUME 94.3 fl (80-99); MEAN CORPUSCULAR HEMOGLOBIN 32.1 pg (26.0-30.0); MEAN CORPUSCULAR HGB CONC 34.1 pg (28.0-36.0); MEAN PLATELET VOLUME 8.1 fl; MONOCYTE ABSOLUTE 0.5 Th/cmm (0.3-1.0); NEUTROPHILE ABSOLUTE 1.3 Th/cmm (1.8-8.0); PLATELET COUNT 104 Th/cmm (150-400); RED BLOOD COUNT 4.04 Mil/cmm (4.30-5.70); RED CELL DISTRIBUTION WIDTH 15.8 % (11.5-20.0); SODIUM SERUM 136 mEq/L (136-145)
[2017-10-01 07:25] LABS: WHITE BLOOD COUNT 3.2 Th/cmm (4.8-10.8)
[2017-10-01] MEDS: Pantoprazole 40 mg EC Tab PO SCH (08:10)
[2017-10-01] MEDS: Nicotine 21 mg/24 hr Tdm TD SCH (08:10)
[2017-10-01] MEDS: Multivitamin w/ Minerals Tab PO SCH (08:10)
[2017-10-01] MEDS: cefTRIAXone 1 GM in Sodium Chloride 0.9% 50 ML IV SCH (08:11)
--- NOTE | 2017-10-01 10:55 | Diagnostic Imaging Report ---
Left knee 3 views Indication: Pain, deformity Comparison: Left femur x-rays on 09/11/2017 Findings: There are age-indeterminate lucency/fractures involving the tibial shaft. There is a chronic fracture of the proximal fibular shaft. Partially visualized fracture fixation hardware of the femur is noted. Distal femoral fracture fixation screws are also noted. Moderate to Advanced degenerative changes are noted. There appears to been old patellar fracture. Small joint effusion is suspected. Calcification of the suprapatellar recess region is noted. Impression: Age indeterminate lucency/fractures of the proximal tibia. Please correlate clinically. Dedicated left tib-fib x-rays may be obtained for further assessment Old fracture of the proximal fibular shaft. Postsurgical changes of the distal femur without evidence of fracture fixation Moderate to advanced degenerative changes and small knee effusion. In the setting of trauma, if clinical symptoms persist and there is continued concern for an occult fracture, follow up exams in 5-7 days is suggested.
[2017-10-01 12:36] LABS: URINE MICROSCOPIC INDICATED? YES; URINE SOURCE RANDOM
[2017-10-01 12:39] LABS: URINE BILIRUBIN NEGATIVE (NEGATIVE); URINE BLOOD NEGATIVE (NEGATIVE); URINE GLUCOSE (UA) NEGATIVE (NEGATIVE); URINE KETONE NEGATIVE (NEGATIVE); URINE LEUKOCYTE ESTERASE NEGATIVE (NEGATIVE); URINE NITRATE NEGATIVE (NEGATIVE); URINE PROTEIN NEGATIVE (NEGATIVE)
[2017-10-01 12:56] LABS: URINE COLOR YELLOW
[2017-10-01 12:57] LABS: URINE CLARITY CLEAR (CLEAR)
[2017-10-01 12:58] LABS: URINE BACTERIA FEW /hpf (NONE SEEN); URINE EPITHELIAL CELLS FEW /lpf (FEW); URINE RBC 0-2 /hpf (0-5); URINE WBC 0-2 /hpf (0-5)
[2017-10-01 12:59] LABS: URINE AMORPHOUS SEDIMENT FEW PHOSPHATES (NONE SEEN)
--- NOTE | 2017-10-30 15:23 | Discharge Summary ---
DATE OF DISCHARGE: 10/01/2017 ADMITTING DIAGNOSES: 1. Bilateral lower extremity cellulitis, left greater than right. 2. Acute alcohol intoxication with withdrawal symptomatology. 3. Acute psychosis. 4. Hypokalemia. 5. Elevated lactic acid level 5. Pancytopenia. SECONDARY DIAGNOSES: Include history of psychosis, history of chronic alcohol abuse, history of chronic deformity involving both knees, and acid reflux disease. DISCHARGE DIAGNOSES: 1. Bilateral lower extremity cellulitis, left greater than right, improved. 2. Acute alcohol intoxication with withdrawal symptomatology, improved. 3. Acute psychosis, improved. 4. Hypokalemia-resolved. CONSULTANTS: Dr. Alves, Psychiatry. MAJOR PROCEDURES: None. DISCHARGE MEDICATIONS: Please refer to the MAR. BRIEF HOSPITAL COURSE: A 61-year-old male who was brought in by the police for public intoxication. The patient was apparently confused, intoxicated, appeared disheveled upon arrival to the ED. He was noted to have bilateral lower extremity redness and tenderness to palpation. He also complained of chronic pain on both knees, which he attributed to previous trauma and eventually deformities on knees. Pertinent findings on labs on admission included a white count of 3.3, a platelet count of 139, potassium level of 3.0. Lactate level of 2.61. The patient was admitted to the med/surg [place] and placed on IV antibiotics, IV fluids, Librium and Ativan p.r.n. The patient potasium was repleted with potassium supplements and his labs were checked on a daily basis. A psychiatry consult was asked for given the patient's psychosis. X-ray of the knees was done on the showing fractures of the proximal tibia. There was an old fracture of the proximal fibular shaft and there was also postsurgical changes of the distal femur without evidence of fracture fixation. Clinically, his bilateral lower extremity cellulitis improved and his pain was managed as well with p.o. meds. CONDITION ON DISCHARGE: Stable. DISPOSITION: Discharge to a homeless detention with the help of case manager specialist and healthcare social worker. JOB# [id number] [place]
== END 2017-10-01 15:40 | disposition left against medical advice (07) | DRG 720 ==
LOC: ER 17:18 → MSI 23:02
PROVIDERS: ADMIT Internal Medicine; ATTEND Internal Medicine
DX: A41.9 Sepsis, unspecified organism (principal); D61.818 Other pancytopenia; G92 Toxic encephalopathy; L03.115 Cellulitis of right lower limb; L03.116 Cellulitis of left lower limb; F10.239 Alcohol dependence with withdrawal, unspecified; M21.962 Unspecified acquired deformity of left lower leg; M21.961 Unspecified acquired deformity of right lower leg; F29 Unspecified psychosis not due to a substance or known physiological condition; E87.6 Hypokalemia; F17.210 Nicotine dependence, cigarettes, uncomplicated; F10.229 Alcohol dependence with intoxication, unspecified; W07.XXXA Fall from chair, initial encounter; Y92.89 Other specified places as the place of occurrence of the external cause; Y99.8 Other external cause status; Y93.89 Activity, other specified; Z59.0 Homelessness; Z96.653 Presence of artificial knee joint, bilateral; Z53.21 Procedure and treatment not carried out due to patient leaving prior to being seen by health care provider
CPT/HCPCS: 36415-UA; 73562-TC-LT; 80048-TC; 80053-TC; 80202-TC; 81001-TC; 82140-TC; 82150-TC; 83605; 83690-TC; 83735-TC; 84100-TC; 85025-TC; 85610-TC; 96375; C9113; J0696; J1885; J1956; J2060; J2765; J3370; J3411; J3475; J3480; J7030; X5958; Z7610

== ENCOUNTER 2017-10-06 12:09 | Inpatient (IN) | payer MEDICAID ==
[2017-10-06] MEDS ORDERED: Thiamine 100 mg/mL 2mL Vial IM STA (12:22)
[2017-10-06] MEDS ORDERED: Sodium Chloride 0.9% 500 ML IV ONE (12:24)
[2017-10-06 12:44] LABS: EOSINOPHILE ABSOLUTE 0.2 Th/cmm (0.1-0.4); HEMATOCRIT 37.3 % (41.0-60); HEMOGLOBIN 12.4 gm/dL (12-16); LYMPHOCYTE ABSOLUTE 0.3 Th/cmm (1.5-3.0); MEAN CELL VOLUME 93.8 fl (80-99); MEAN CORPUSCULAR HEMOGLOBIN 31.3 pg (26.0-30.0); MEAN CORPUSCULAR HGB CONC 33.3 pg (28.0-36.0); MEAN PLATELET VOLUME 6.6 fl; MONOCYTE ABSOLUTE 4.2 Th/cmm (0.3-1.0); NEUTROPHILE ABSOLUTE 1.1 Th/cmm (1.8-8.0); RED BLOOD COUNT 3.98 Mil/cmm (4.30-5.70); RED CELL DISTRIBUTION WIDTH 16.2 % (11.5-20.0)
[2017-10-06 13:01] LABS: INR 1.06 (0.5-1.4)
[2017-10-06 13:05] LABS: PLATELET COUNT 354 Th/cmm (150-400); WHITE BLOOD COUNT 5.8 Th/cmm (4.8-10.8)
--- NOTE | 2017-10-06 13:10 | Diagnostic Imaging Report ---
Portable chest x-ray History: Cough Allowing for portable technique the heart size is normal. Atherosclerotic calcination seen in the aorta. No focal pulmonary parenchymal processes. No hilar or mediastinal abnormalities. Impression: 1. No acute abnormalities 2. Atherosclerotic vascular changes
[2017-10-06 13:16] LABS: EOSINOPHIL 3 % (0-5); LYMPHOCYTE 35 % (20-50); MONOCYTE 5 % (2-10); NEUTROPHILS 57 % (40-80); TOTAL CELLS COUNTED 100
[2017-10-06] MEDS ORDERED: Thiamine 100 mg/mL 2mL Vial ONE ×2 (13:38→21:08)
[2017-10-06 13:44] LABS: ALB/GLOB RATIO 1.6 (1.0-1.8); ALBUMIN 4.2 gm/dL (4.2-5.5); BILIRUBIN,TOTAL 0.3 mg/dL (0.3-1.0); TOTAL PROTEIN,SERUM 6.8 gm/dL (6.0-8.3)
[2017-10-06 13:46] LABS: ALB/GLOB RATIO 1.5 (1.0-1.8); ALBUMIN 4.2 gm/dL (4.2-5.5); ALKALINE PHOSPHATASE 82 U/L (34-104); ANION GAP 11.8 (7.0-16.0); BILIRUBIN,TOTAL 0.3 mg/dL (0.3-1.0); BUN - UREA NITROGEN 12 mg/dL (7-25); CALCIUM SERUM 9.1 mg/dL (8.6-10.3); CHLORIDE 105 mEq/L (98-107); CREATININE - SERUM 0.5 mg/dL (0.7-1.3); GFR AFRICAN-AMERICAN > 60.0 ml/min (>90); GFR NON AFRICAN-AMERICAN > 60.0 ml/min; GLUCOSE 103 mg/dL (70-105); POTASSIUM SERUM 3.8 mEq/L (3.5-5.1); SGOT 50 U/L (13-39); SGPT/ALT 34 U/L (7-52); SODIUM SERUM 142 mEq/L (136-145)
[2017-10-06 13:47] LABS: BILIRUBIN,DIRECT 0.09 mg/dL (0.0-0.2)
[2017-10-06] MEDS ORDERED: Mag Sulfate 2gm/50mL Premix 2 GM/50 ML BAG IV ONE ×2 (14:38→16:23)
--- NOTE | 2017-10-06 15:15 | ER Physician Documentation ---
DATE OF SERVICE: The patient was brought by the deputy sheriff building guard run. He was found on the street with his pants down. The patient was alcoholic, drunk, smelling of alcohol. He is a 61-year-old male patient. He is hungry and he is homeless, so he was brought over here. HISTORY OF PRESENT ILLNESS: The patient is homeless. He was found to have most of his clothes dirty, and he had a knife in his pocket. He is hungry, he wants a sandwich. He drinks alcohol. He says his legs are swollen. He says he is not feeling good. Otherwise, he says he has some mild hypertension. Denies any other significant medical history. PAST MEDICAL HISTORY: I see a surgical scar on the abdomen, he does not know what was that scar. He uses the knife to protect himself, being homeless. He denies any other liver disease. The patient has some other medical problem in the abdomen, lower abdominal area, but unable to give any history. We will check his prostate and other lab workup done. REVIEW OF SYSTEMS: EYES: There is no history of any double vision, blurring. Cannot appreciate jaundice in him, but will get the CMP profile done. PT, PTT done. ENDOCRINE: No history of diabetes mellitus, hypo or hyperparathyroidism. BONES AND JOINTS: Aches and pains. GI: No history of diarrhea, constipation, vomiting. PULMONARY: No history of any cough or shortness of breath or any difficulty in breathing. HEART: He says he has heart problem, but does not know, and I was told in the Emergency Room only medication to be ordered must be given in the Emergency Room. Otherwise, I should not be ordering any medications for the floor. CURRENT MEDICATIONS: None that the patient taking or brought here. FAMILY HISTORY: Benign, negative. The patient says he has 2 sons. He is homeless. Nobody to take care of him. PHYSICAL EXAMINATION: GENERAL: The patient appears to be not in any acute cardiorespiratory distress. He is hungry. He does not know whether he is in the hospital. Alcoholic smell. NECK: Supple. No meningeal signs are noted. EXTREMITIES: No cyanosis, no petechia, no ecchymosis is noted. 2+ edema over the legs. No evidence of any DVT is noted. Moves all the extremities, but he is very slow. He is under the influence of the alcohol. Alcohol level has been ordered. CHEST: Trachea to be central. Fairly good air entry in both lungs without any rales, rhonchi or bronchial breathing. ABDOMEN: Soft and obese. Perhaps, some ascites may be present. Liver and spleen cannot be palpated. Bowel sounds are normal. CENTRAL NERVOUS SYSTEM: The patient is alcoholic. Moves all his extremities, but otherwise not much history could be obtained from him because he is under influence of the alcohol , the review of systems could not be obtained in detail because of the patient's alcoholic status. HEART: Normal heart sounds. Soft fourth heart sound. Second heart sound is physiologically split. Third heart sound is absent. BONES AND JOINTS: Grossly appears to be within normal limits. No definite evidence of any fracture. CLINICAL IMPRESSION: 1. The patient being homeless. 2. Under the influence of alcohol. 3. Very hungry status. 4. We will need to rule out if the patient has any cirrhotic liver disease. High ammonia level, PT, PTT. liver profile, EKG, chest x-ray, personnel monitor, routine workup, etc. will be ordered for the patient and we will go from there what further to be done for this patient. We are going to check for septic status of the patient. We will give him some thiamine to prevent any warning signs of encephalopathy. IV fluids have been given. [place] to eat for him has been given already. JOB# [id number]
[2017-10-06] MEDS ORDERED: Piperacillin Sodium/Tazobact 3.375 gm Vial IV ONE (15:32)
[2017-10-06 15:57] LABS: CHOLESTEROL 233 mg/dL (<200); HDL -HIGH DENSITY LIPOPROTEIN 82 mg/dL (23-92); TRIGLYCERIDES 141 mg/dL (<150)
[2017-10-06] MEDS ORDERED: Multivitamin Inj 10 mL Vial IV ONE (21:12)
[2017-10-06] MEDS ORDERED: Magnesium Sulfate 1 gm/2 mL 2mL Vial IV ONE (21:13)
[2017-10-06] MEDS: Multivitamin Inj 10 ML, Thiamine HCL 100 MG, Magnesium Sulfate 2 GM, Folic Acid 1 MG in... IV SCH (22:28)
[2017-10-06] MEDS: Morphine Sulfate 2 mg/mL 1mL Syr IVP PRN (22:45)
[2017-10-07] MEDS: Morphine Sulfate 2 mg/mL 1mL Syr IVP PRN ×6 (02:49→21:08)
[2017-10-07 03:55] VITALS: BP 129/70
[2017-10-07 05:38] LABS: EOSINOPHILE ABSOLUTE 0.3 Th/cmm (0.1-0.4); HEMOGLOBIN 11.1 gm/dL (12-16); LYMPHOCYTE ABSOLUTE 0.2 Th/cmm (1.5-3.0); MEAN CORPUSCULAR HEMOGLOBIN 31.4 pg (26.0-30.0); MEAN CORPUSCULAR HGB CONC 33.8 pg (28.0-36.0); MONOCYTE ABSOLUTE 3.4 Th/cmm (0.3-1.0); NEUTROPHILE ABSOLUTE 1.7 Th/cmm (1.8-8.0); PLATELET COUNT 314 Th/cmm (150-400); RED BLOOD COUNT 3.52 Mil/cmm (4.30-5.70); RED CELL DISTRIBUTION WIDTH 15.6 % (11.5-20.0); WHITE BLOOD COUNT 5.6 Th/cmm (4.8-10.8)
[2017-10-07 05:49] LABS: HEMATOCRIT 32.8 % (41.0-60)
[2017-10-07 06:06] LABS: ALB/GLOB RATIO 1.4 (1.0-1.8); ALBUMIN 3.4 gm/dL (4.2-5.5); ALKALINE PHOSPHATASE 72 U/L (34-104); AMYLASE SERUM 41 U/L (29-103); ANION GAP 9.5 (7.0-16.0); BILIRUBIN,TOTAL 0.6 mg/dL (0.3-1.0); BUN - UREA NITROGEN 11 mg/dL (7-25); CALCIUM SERUM 8.3 mg/dL (8.6-10.3); CARBON DIOXIDE 30.2 mEq/L (21.0-31.0); CHLORIDE 102 mEq/L (98-107); CREATININE - SERUM 0.5 mg/dL (0.7-1.3); GFR AFRICAN-AMERICAN > 60.0 ml/min (>90); GFR NON AFRICAN-AMERICAN > 60.0 ml/min; GLUCOSE 94 mg/dL (70-105); LIPASE 30 U/L (11-82); POTASSIUM SERUM 3.7 mEq/L (3.5-5.1); SGOT 33 U/L (13-39); SGPT/ALT 25 U/L (7-52); SODIUM SERUM 138 mEq/L (136-145); TOTAL PROTEIN,SERUM 5.9 gm/dL (6.0-8.3)
[2017-10-07 06:24] LABS: BAND NEUTROPHILE 2 % (0-10); EOSINOPHIL 1 % (0-5); LYMPHOCYTE 38 % (20-50); MONOCYTE 5 % (2-10); NEUTROPHILS 54 % (40-80); TOTAL CELLS COUNTED 100
[2017-10-07] MEDS ORDERED: Multivitamin w/ Minerals Tab PO SCH (09:00)
[2017-10-07] MEDS ORDERED: Pneumococcal Vaccine 0.5 mL Vial IM ONE (10:00)
[2017-10-07] MEDS ORDERED: Influenza Vaccine 0.5 mL Syr IM ONE (10:40)
--- NOTE | 2017-10-07 18:58 | History and Physical ---
History of Present Illness - HPI Chief Complaint: alcohol intoxication HPI: 61 year old homeless male who was found on the streets drunk. Vital Signs: Last Vital Signs Temp 97.7 F 10/07/17 18:00 Pulse 86 10/07/17 18:00 Resp 18 10/07/17 18:00 BP 129/83 10/07/17 18:00 Pulse Ox 98 10/07/17 18:00 Past Medical History Other History: unknown - Past Surgical History Past Surgical History: Other Family Medical History - Family Member Mother History Unknown: Yes Social History Smoke: 1 pack per day Alcohol: Heavy Drugs: Marijuana Lives: Homeless - Medications Home Medications: Home Medication Medication Instructions Recorded Type NK [No Home Meds] 09/27/17 History - Allergies Allergies/Adverse Reactions: Allergies Allergy/AdvReac Type Severity Reaction Status Date / Time No Known Allergies Allergy Verified 10/06/17 17:40 Review of Systems - Review of Systems Constitutional: Report: Weakness Eyes: Report: No Significant ENT: Report: No Significant Respiratory: Report: No Significant Cardiovascular: Report: No Significant Gastrointestinal: Report: No Significant Genitourinary: Report: No Significant Musculoskeletal: Report: No Significant Skin: Report: No Significant Neurological: Report: Weakness Physical Exam - Physical Exam HEENT: Report: Ears Nose Throat within normal limits Neck: Report: Within normal limits Cardiovascular Systems: Report: +s1/s2 noted Respiratory: Report: Breath Sounds are within normal limits Abdomen: Report: Non-tender to palpation Back: Report: Inspection of back is within normal limits. Skin: Report: Warm Neuro/Psych: Report: Mood affect is within normal limits - Lab Results All Lab Results last 24 hours: Laboratory Results - last 24 hr 10/07/17 10/07/17 10/07/17 05:10 05:10 05:10 WBC 5.6 RBC 3.52 L Hgb 11.1 L Hct 32.8 L D MCV 93.0 MCH 31.4 H MCHC Differential 33.8 RDW 15.6 Plt Count 314 MPV 7.0 Band Neutrophils % 2 Neutrophils (Manual) 54 Lymphocytes 38 Monocytes 5 Eosinophils 1 Sodium 138 Potassium 3.7 Chloride 102 Carbon Dioxide 30.2 Anion Gap 9.5 BUN 11 Creatinine 0.5 L Est GFR ( Amer) > 60.0 Est GFR (Non-Af Amer) > 60.0 BUN/Creatinine Ratio 22.0 Glucose 94 Whole Bld Lactic Acid 1.40 Calcium 8.3 L Total Bilirubin 0.6 AST 33 ALT 25 Alkaline Phosphatase 72 Total Protein 5.9 L Albumin 3.4 L Globulin 2.5 Albumin/Globulin Ratio 1.4 Amylase 41 Lipase 30 - Assessment Assessment: homelessness etoh abuse - Plan Plan: librium ivf for hydration follow up labs in am continue current orders
[2017-10-07] MEDS: Albuterol/Ipratropium Neb 3 ML AERS HHN SCH ×2 (20:28→20:37)
[2017-10-07] MEDS: Multivitamin Inj 10 ML, Thiamine HCL 100 MG, Magnesium Sulfate 2 GM, Folic Acid 1 MG in... IV SCH (20:51)
[2017-10-08] MEDS: Morphine Sulfate 2 mg/mL 1mL Syr IVP PRN ×2 (01:03→10:33)
[2017-10-08] MEDS: Albuterol/Ipratropium Neb 3 ML AERS HHN SCH ×2 (01:32→07:13)
--- NOTE | 2017-10-08 03:58 | Progress Notes ---
DATE: 10/07/2017 PULMONARY/CRITICAL CARE CONSULTATION NOTE REASON FOR CONSULTATION: Help the patient with shortness of breath. CONSULT NOTE: This is a 61-year-old gentleman, appears to be a very poor historian, was found in the street with his pants down. Secondly, he is homeless, also has a first periodic coughing and wheezing. Subsequently, the patient was admitted and because of chronic smoking and chronic coughing, I was asked to see this patient for further care and necessary treatment. The patient complains of pain in the left leg for the last couple of months and he has been taking alcohol. Denies of any chest pain, any wheezing, etc. Unfortunately, is very poor historian. Denies of any previous preexisting any medical conditions. PAST MEDICAL HISTORY: Abdominal surgery, otherwise unremarkable. Questionable hepatic disease. SMOKING HISTORY: One cigarette a day, though it not reliable history. ALLERGIC HISTORY: Nil. WORK HISTORY: Used to be a [employer], currently homeless. PHYSICAL EXAMINATION: GENERAL: This is very poor hygienic state gentleman, awake, alert, and oriented, not in any acute distress. VITAL SIGNS: The patient's recorded vitals, temperature is 97.7, blood pressure is 132/72, and saturation is 98% on room air. HEENT: Head is essentially unremarkable. Pupils appear to be equal and reacting to light. Conjunctivae are slightly pallor. Oral cavity essentially unremarkable and very poor hygienic condition and otherwise unremarkable. NECK: Veins not visualized. Good bilateral carotid upstroke. CHEST: Shows diminished air entry with occasional rhonchi. HEART: Regular. ABDOMEN: Soft, nontender. LABORATORY DATA: The patient's white count is 6.6 and hemoglobin 14.8. Chest x-ray shows no acute changes. ASSESSMENT: The patient has probably mild degree of bronchitis, but otherwise does not seem to be acute changes at this particular time and the patient is a poor historian. PLANS AND SUGGESTIONS: We will continue current conservative treatment. We will give some breathing treatment. Get a baseline blood gases, etc. and see how it is and go from there. JOB# [id number]
[2017-10-08 09:50] LABS: pH 7.48 (7.35-7.45)
[2017-10-08 09:51] LABS: ALLEN TEST YES
--- NOTE | 2017-10-08 09:53 | General Progress Note ---
Subjective - Review of Systems Events since last encounter: patient awake alert in no distress c/o mild sob Objective - Results Result Diagrams: 10/07/17 05:10 10/07/17 05:10 Recent Labs: Laboratory Last Values WBC 5.6 Th/cmm (4.8-10.8) 10/07/17 05:10 RBC 3.52 Mil/cmm (4.30-5.70) L 10/07/17 05:10 Hgb 11.1 gm/dL (12-16) L 10/07/17 05:10 Hct 32.8 % (41.0-60) L D 10/07/17 05:10 MCV 93.0 fl (80-99) 10/07/17 05:10 MCH 31.4 pg (26.0-30.0) H 10/07/17 05:10 MCHC Differential 33.8 pg (28.0-36.0) 10/07/17 05:10 RDW 15.6 % (11.5-20.0) 10/07/17 05:10 Plt Count 314 Th/cmm (150-400) 10/07/17 05:10 MPV 7.0 fl 10/07/17 05:10 Band Neutrophils % 2 % (0-10) 10/07/17 05:10 Neutrophils (Manual) 54 % (40-80) 10/07/17 05:10 Lymphocytes 38 % (20-50) 10/07/17 05:10 Monocytes 5 % (2-10) 10/07/17 05:10 Eosinophils 1 % (0-5) 10/07/17 05:10 PT 11.0 SECONDS (9.5-11.5) 10/06/17 12:30 INR 1.06 (0.5-1.4) 10/06/17 12:30 PTT (Actin FS) 24.9 SECONDS (26.0-38.0) L 10/06/17 12:30 Specimen Source Arterial 10/08/17 09:45 Sample Site Right Radial 10/08/17 09:45 pH 7.48 (7.35-7.45) H 10/08/17 09:45 pCO2 38.0 mmHg (35.0-45.0) 10/08/17 09:45 pO2 70.0 mmHg (80.0-100.0) L 10/08/17 09:45 HCO3 28.5 mEq/L (20.0-26.0) H 10/08/17 09:45 Base Excess 4.6 mEq/L (-3.0-3.0) H 10/08/17 09:45 O2 Saturation 95.0 % (92.0-100.0) 10/08/17 09:45 Jitendra Test YES 10/08/17 09:45 Vent Rate NA 10/08/17 09:45 Inspired O2 21 10/08/17 09:45 Tidal Volume NA 10/08/17 09:45 PEEP NA 10/08/17 09:45 Pressure (ins/psv/peep) NA 10/08/17 09:45 Critical Value E.BONDS 10/08/17 09:45 Sodium 138 mEq/L (136-145) 10/07/17 05:10 Potassium 3.7 mEq/L (3.5-5.1) 10/07/17 05:10 Chloride 102 mEq/L (98-107) 10/07/17 05:10 Carbon Dioxide 30.2 mEq/L (21.0-31.0) 10/07/17 05:10 Anion Gap 9.5 (7.0-16.0) 10/07/17 05:10 BUN 11 mg/dL (7-25) 10/07/17 05:10 Creatinine 0.5 mg/dL (0.7-1.3) L 10/07/17 05:10 Est GFR ( Amer) > 60.0 ml/min (>90) 10/07/17 05:10 Est GFR (Non-Af Amer) > 60.0 ml/min 10/07/17 05:10 BUN/Creatinine Ratio 22.0 10/07/17 05:10 Glucose 94 mg/dL (70-105) 10/07/17 05:10 Whole Bld Lactic Acid 1.40 mmol/L (0.60-1.99) 10/07/17 05:10 Calcium 8.3 mg/dL (8.6-10.3) L 10/07/17 05:10 Magnesium 1.9 mg/dL (1.9-2.7) 10/06/17 12:30 Total Bilirubin 0.6 mg/dL (0.3-1.0) 10/07/17 05:10 Direct Bilirubin 0.09 mg/dL (0.0-0.2) 10/06/17 12:30 AST 33 U/L (13-39) 10/07/17 05:10 ALT 25 U/L (7-52) 10/07/17 05:10 Alkaline Phosphatase 72 U/L (34-104) 10/07/17 05:10 Ammonia 36 umol/L (16-53) 10/06/17 12:30 C-Reactive Protein < 0.2 mg/dL (0.0-0.9) 10/06/17 12:30 B-Natriuretic Peptide 18.5 pg/mL (5.0-100.0) 10/06/17 12:30 Total Protein 5.9 gm/dL (6.0-8.3) L 10/07/17 05:10 Albumin 3.4 gm/dL (4.2-5.5) L 10/07/17 05:10 Globulin 2.5 gm/dL 10/07/17 05:10 Albumin/Globulin Ratio 1.4 (1.0-1.8) 10/07/17 05:10 Triglycerides 141 mg/dL (<150) 10/06/17 12:30 Cholesterol 233 mg/dL (<200) H 10/06/17 12:30 LDL Cholesterol Direct 147 mg/dL (75-193) 10/06/17 12:30 HDL Cholesterol 82 mg/dL (23-92) 10/06/17 12:30 Amylase 41 U/L (29-103) 10/07/17 05:10 Lipase 30 U/L (11-82) 10/07/17 05:10 Ethyl Alcohol 427 mg/dL (0-10) H 10/06/17 12:30 - Physical Exam Vitals and I&O: Vital Signs Temp 98.2 F 10/08/17 08:00 Pulse 82 10/08/17 08:00 Resp 18 10/08/17 08:00 BP 135/90 10/08/17 08:00 Pulse Ox 96 10/08/17 08:00 Intake & Output 10/07/17 10/08/17 10/08/17 18:59 06:59 18:59 Intake Total 350 1115.2 Balance 350 1115.2 Weight (lbs) 72.575 kg 72.575 kg Intake: Intake, IV Amount 1015.2 Multivitamin Inj 10 ml 1015.2 Thiamine HCL 100 mg Magnesium Sulfate 2 gm Folic Acid 1 mg In Sodium Chloride 0.9% 1,000 ml @ 150 mls/hr IV Q24H [facility] Rx#:[id number] Oral 350 100 Other: # Voids 600 4 # Bowel Movements 0 Active Medications: Current Medications Albuterol/Ipratropium (Duoneb Neb) 3 ml HHN Q6HRT [facility] Stop: 12/06/17 18:59 Last Admin: 10/08/17 07:13 Dose: 3 ml Chlordiazepoxide (Librium) 50 mg PO TID [facility] PRN Reason: Protocol Stop: 12/05/17 20:59 Last Admin: 10/08/17 08:52 Dose: 50 mg Multivitamins/Minerals 10 ml/Thiamine HCl 100 mg/ Magnesium Sulfate 2 gm/ Folic Acid 1 mg / Sodium Chloride 1,015.2 mls @ 150 mls/hr IV Q24H [facility] Stop: 12/05/17 20:34 Last Infusion: 10/08/17 06:41 Dose: Infused Morphine Sulfate (Morphine) 1 mg IVP Q3H PRN PRN Reason: Pain (Moderate) Stop: 12/05/17 22:00 Last Admin: 10/07/17 10:05 Dose: 1 mg Morphine Sulfate (Morphine) 2 mg IVP Q4HR PRN PRN Reason: Pain (Severe) Stop: 12/05/17 22:02 Last Admin: 10/08/17 01:03 Dose: 2 mg Ondansetron HCl (Zofran) 4 mg IV Q6H PRN PRN Reason: Nausea / Vomiting Stop: 12/05/17 22:03 Last Admin: 10/06/17 22:46 Dose: 4 mg Assessment/Plan - Problem List Patient Problems: All Active Problems ALCOHOL INTOXICATION, NECK/BACK PAIN (Acute) ETOH INTOX (Acute) FALL FROM W/C, 51/50 STATUS, GRAVE DISABI (Acute) - Assessment Assessment: homelessness etoh abuse - Plan Plan: librium ivf for hydration follow up labs in am continue current orders Nutritional Asmnt/Malnutr-PDOC - Dietary Evaluation Malnutrition Findings (Please click <Entered> for more info): Nutritional Asmnt/Malnutrition Start: 10/07/17 17: 53 Text: Status: Active Freq: Document 10/07/17 17:53 [email or web address] (Rec: 10/07/17 17:59 LCHENG [email or web address]) Nutritional Asmnt/Malnutrition Patient General Information Nutritional Screening High Risk Consult Diagnosis dehydration, ETOH Pertinent Medical Hx/Surgical Hx not able to obtain from H&P Subjective Information Consult received for low angela score. Pt seen lying in bed at time of visit, awake, reported appetitie so so, provided wtih food prefernce. Per [employer], pt consumed 50% of breakfast and 75% of lunch Current Diet Order/ Nutrition Support regular Pertinent Medications multivitamins/minerals/ thiamine/magnesium/folic acid Pertinent Labs 10/07 Na 138, K 3.7, Cl 102, BUN 11, Cr 0.5, glucose 94, Ca 8.3 Nutritional Hx/Data Height 1.78 m Height (Calculated Centimeters) 177.8 Current Weight (lbs) 72.575 kg Weight (Calculated Kilograms) 72.6 Weight (Calculated Grams) 21226.8 [place] Body Weight 166 % [place] Body Weight 96 Body Mass Index (BMI) 22.9 Weight Status Approriate GI Symptoms GI Symptoms None Last BM none Difficult in: None Skin Integrity/Comment: angela 14, bruise to right and left leg, intact Current %PO Fair (50-74%) Estimated Nutritional Goals BEE in Kcals: Using Current wt Calories/Kcals/Kg 25-30 Kcals Calculated 0730-4422 Protein: Using Current wt Protein g/k-1.2 Protein Calculated 73-88 Fluid: ml 1825-2190ml (1ml/kcal) Nutritional Problem No current Nutrition Prob Problem N/A Intervention/Recommendation Comments 1. Continue with current diet as ordered. Educated with balanced meal and adequat nutrient intake. 2. Monitor PO intake, wt, labs and skin integrity 3. F/U as moderate risk in 3-5 days, 10/10-10/12 Expected Outcomes/Goals Expected Outcomes/Goals 1. PO intake to meet at least 75% of nutritional needs. 2. Wt stability, skin to remain intact, labs to approach WNL.
--- NOTE | 2017-10-11 12:30 | Discharge Summary ---
DATE OF DISCHARGE: 10/08/2017 The patient was admitted on 10/06/2017 and the patient was AMA'd on 10/08/2017. Essentially, this patient was admitted for alcoholic withdrawal, alcoholic intoxication, and electrolyte imbalance. The patient has also had malnutrition. The patient was given IV hydration and Librium. The patient improved, but he did not stay till the full course of his treatment, the patient left himself AMA. [facility]# [id number]
== END 2017-10-08 12:00 | disposition left against medical advice (07) | DRG 770 ==
LOC: ER 12:09 → TELE 18:15 → MSI 10-08 11:23
PROVIDERS: ADMIT Internal Medicine; ATTEND Internal Medicine
DX: F10.239 Alcohol dependence with withdrawal, unspecified (principal); E46 Unspecified protein-calorie malnutrition; E87.8 Other disorders of electrolyte and fluid balance, not elsewhere classified; F10.229 Alcohol dependence with intoxication, unspecified; F17.210 Nicotine dependence, cigarettes, uncomplicated; Z53.21 Procedure and treatment not carried out due to patient leaving prior to being seen by health care provider; I10 Essential (primary) hypertension; J40 Bronchitis, not specified as acute or chronic; Z68.23 Body mass index [BMI] 23.0-23.9, adult; Z59.0 Homelessness
CPT/HCPCS: 36415-UA; 36600-90; 71045-TC; 80053-TC; 80061-TC; 80076-TC; 80320-TC; 82140-TC; 82150-TC; 82803-TC; 83605; 83690-TC; 83735-TC; 83880-TC; 85007-TC; 85027-TC; 85610-TC; 86141-TC; 94760; J2270; J2405; J2543; J3370; J3411; J3475; J7030; J7040; X6226; X6598; Z7610